=== PATIENT | male | born 1985 | race African-American/Black ===

== ENCOUNTER 2017-10-19 06:28 | Emergency (ER) | payer MEDICAID ==
[~2017-10-19] VITALS: Ht 175.3 cm; Wt 86.0 kg
[2017-10-19] MEDS ORDERED: IPRATROPIUM BROMIDE (0.02%) 0.5MG/2.5ML NEB HHN STA (07:35)
[2017-10-19] MEDS ORDERED: ALBUTEROL (0.083%) 2.5MG/3ML NEB HHN STA (07:35)
[2017-10-19 09:54] VITALS: BP 130/80
== END 2017-10-19 09:56 | disposition home or self-care (01) ==
LOC: ER 07:28
DX: J18.9 Pneumonia, unspecified organism (principal); F17.200 Nicotine dependence, unspecified, uncomplicated
CPT/HCPCS: 71045; 93005; 94640; 99284; J7611